=== PATIENT | male | born 1960 | race Caucasian/White ===

== ENCOUNTER 2024-08-19 17:47 | Emergency (ER) | payer SELFPAY ==
[2024-08-19 17:48] VITALS: BP 154/82; PULSE 90; RESP 15; TEMP 36.3; O2SAT 96; BMI 26.9
--- NOTE | 2024-08-19 18:30 | EDS_ITS ---
HPI History of Present Illness Chief Complaint: Eye Problem PFS PFS Medical History no medical history Allergy/AdvReac Type Severity Reaction Status Date / Time No Known Allergies Allergy Verified 08/19/24 17:50 Family History no significant family his Surgical History no surgical history Social History Smoking Status: Former smoker EXAM Physical Exam Const Vital Signs: 08/19/24 17:48 Temperature 97.3 F L Temperature Source Temporal Pulse Rate 90 Respiratory Rate 15 Blood Pressure 154/82 H Blood Pressure Mean 106 Pulse Ox 96 Oxygen Delivery Method Room Air [facility] [place] Narrative Medical decision making narrative: HISTORY OF PRESENT ILLNESS: 63-year-old male presents with left eye blurry vision. No redness or irritation was noted per the patient's history. Notes this began on Saturday. His states he has been started and would not come in. He notes blurry vision almost total vision loss in the left eye. He still make out light however is very blurry. Typically wears glasses. No contacts. No foreign bodies noted to left eye. No redness or itching. No history of strokes. No recent head trauma. No headache. No focal neurologic deficits otherwise. REVIEW OF SYSTEMS: Pertinent positives: Blurry vision, left eye irritation Pertinent negatives: Headache, palpitations PHYSICAL EXAM: Nursing triage notes reviewed, Vital signs reviewed Constitutional: [facility] see [facility] HENT: MMM Eyes: Visual acuity 20/25 OD, could not make out any Snellen eye chart letters OS, visual peña intact, funduscopic exam with dark appearing fundus, no sign of a sanabria macula or blood and thunder appearance fluorescein stain showed no evidence of corneal abrasion or globe rupture. Pupils equal round and reactive to light, Extraocular muscles intact Neck: No stridor, no JVD, full neck ROM Lungs: Clear to auscultation, No wheezing or rales. No increased work of breathing, no conversational dyspnea, no accessory muscle use, no nasal flaring. No respiratory distress noted Heart: Regular rate and rhythm, No murmurs, No rubs and No gallops, 2+ distal pulses (radial, femoral, posterior tibial) in all extremities Skin: No rash or lesions noted Neuro: Alert and oriented x3, neuro exam at baseline, cranial nerves II through XII are intact. No pain with extraocular muscle movement. There is negative test of skew. 5 of 5 strength in upper and lower extremities in flexion extension. Intact sensation to light touch in upper and lower extremity dermatomes. No truncal or extremity ataxia. No dysdiadochokinesia. Normal gait. 2+ reflexes in upper and lower extremities. No meningeal signs. Negative Babinski. NIH of 0. MEDICAL DECISION MAKING: Chief Complaint: Left eye irritation Consults: Ophthalmology -discussed the case with Dr. Antony local fish smoker who noted there is no indication for emergent ophthalmology evaluation or acute surgical intervention. Note he could see the patient tomorrow and 08/20/2024 [facility] Narrative: The patient was initially hemodynamically stable, afebrile and nontoxic- appearing. Exam with significant visual acuity difference in left eye. Patient's last known well was greater than 24 hours prior to arrival which means he is not a code stroke. Stroke team. He is not a candidate for TNK or thrombectomy. He is not a candidate for emergent transfer for ophthalmology evaluation. I considered the following differential diagnosis: Vitreous hemorrhage, vitreous detachment, retinal detachment, central retinal artery occlusion, retinal vein occlusion, CVA, ICH, large vessel occlusion I obtained a broad lab and imaging workup to further elucidate etiology of the patient's complaints. ALL IMAGES (IF OBTAINED) HAVE BEEN PERSONALLY REVIEWED AND INTERPRETED BY MYSELF. EKG with normal sinus rhythm rate of 65, left ax deviation, normal intervals, no STEMI CBC without leukocytosis, severe anemia, no thrombocytopenia. No coagulopathy BMP without evidence of significant electrolyte abnormalities, no anion gap, no acute kidney injury. High-sensitivity troponin is negative, no evidence of myocardial ischemia POCUS ultrasound showed showed a rectal detachment. CT scan of the brain, CTA of the head neck showed no evidence of ICH, mass or large vessel occlusion I have personally reviewed the patient's chest x-ray. Chest x-ray is unremarkable for pulmonary edema, pneumothorax, pneumonia or focal cardiopulmonary abnormality. The synthesis of the patient's history, physical exam, labs images suggest likely retinal detachment. Ophthalmology recommended close outpatient follow-up in next 24 hours. The patient and/or family, caregivers express understanding. The patient and/or family, caregivers agrees with the plan. Shared decision making: I will have a discussion with the patient and or visitors regarding risk/benefits of further testing or admission. They will be made aware of of the risk/benefits inherent in this decision they will be given the opportunity to voice understanding. Total critical care time today provided was at least 0 minutes. This excludes separately billable procedures. Critical care time (if documented) is secondary to the patient having high probability of clinically significant/life threatening deterioration in the patient's condition which required my urgent intervention. Impression: 1. Retinal detachment 2. Visual disturbance Dispo: Discharge home This note was generated with Chloe [employer] dictation software. It may contain incorrect words, spelling, and punctuation that were not noted in review of the chart prior to signing. Discharge Plan Triage Chief Complaint: Eye Problem ED Provider: Bobby Rivera Dx/Rx/DC Orders Instructions: ED Retinal Detachment Primary Care Provider: Care Physician,No Primary Referrals: Shon Antony MD [Med Staff - Active Staff] - Activity Restrictions/Additional Instructions: Thank you for trusting us with your care today! Your History and Physical exam were consistent with a retinal detachment. I spoke to the fish smoker Dr. Antony who noted there is no urgency to get this fixed given the duration of symptoms. Noted you can call his office tomorr ow morning we will fit you in. He plans to see you tomorrow on 08/20/2024. Your CT scan of your head and neck as well as additional labs images were unremarkable for signs of brain abnormality such as mass, bleed or stroke. Please take Tylenol (2 pills, 650 mg), ibuprofen (2 pills, 400 mg) every 6 hours as needed for pain and fever control. Please return to the emergency department if your symptoms change or worsen. Please follow with your primary care physician for further outpatient evaluation and management. Print Language: Croatian Disposition Disposition: Home, Self Care Discharge Date/Time: 08/19/24 21:45
[2024-08-19] MEDS: Fluorescein 1 MG STRIP 1 STRIP LEFT EYE (18:45)
[2024-08-19] MEDS: Tetracaine 0.5% Ophthalmic Bottle 1 DRP LEFT EYE (18:45)
[2024-08-19 19:16] VITALS: BMI 26.9
--- NOTE | 2024-08-19 19:16 | RAD_ITS ---
PROCEDURE: CHEST 1 VIEW 08/19/2024 REASON FOR EXAM: 63-year-old male, neuro deficit, acute stroke suspected. Denies chest/breathing problems. TECHNIQUE: Frontal view of the chest. COMPARISON: None. FINDINGS: Hardware: None. Heart: Mild cardiomegaly and bilateral pulmonary vascular congestion. Lungs: Low lung volumes bilaterally. Findings of mild emphysema. No focal consolidation, pleural effusion or pneumothorax. Bones: Degenerative changes are identified within the thoracic spine. RAD/Chest 1 View IMPRESSION: 1. Mild cardiomegaly. 2. Emphysema. Reading Location: [id number]
--- NOTE | 2024-08-19 19:16 | EKG12_ITS ---
Test Reason : DYSRHYTHMIA Blood Pressure : */* mmHG Vent. Rate : 65 BPM Atrial Rate : 65 BPM P-R Int : 182 ms QRS Dur : 92 ms QT Int : 420 ms P-R-T Axes : 16 -16 6 degrees QTcB Int : 436 ms Normal sinus rhythm Inferior infarct , age undetermined Abnormal ECG Confirmed by NOELLE العلي, SHELIA ([id number]), research editor FILIBERTO STONE ([id number]) on 08/20/2024 8:06:19 AM Referred By: Confirmed By: SHELIA DRAKE MD
--- NOTE | 2024-08-19 19:40 | CT_ITS ---
PROCEDURE: CT HEAD, CTA HEAD AND NECK W/ CONTRAST 08/19/2024 REASON FOR EXAM: 63-year-old male, left-sided visual loss, left eye irritation and redness. TECHNIQUE: CT imaging of the head was performed with coronal and sagittal reconstruction. CTA imaging of the head and neck from the aortic arch to the skull vertex with intravenous contrast. Coronal and Sagittal reconstruction series were provided. 3D, 3D post processing, 3D reconstructions, Maximum intensity projection (MIPs) Volume rendering and Shaded surface rendering was provided. CONTRAST: Isovue 300 VOLUME: 100ML One or more dose reduction techniques were used (e.g., Automated exposure control, adjustment of the mA and/or kV according to patient size, use of iterative reconstruction technique). RADIATION DOSE SUMMARY: CTDlvol: 100 mGy DLP: 1600 mGycm COMPARISON: None. FINDINGS: Noncontrast CT head: Mild scattered supratentorial white matter hypodensities. The flood-white matter interfaces are otherwise maintained. No acute intracranial hemorrhage or herniation. The basal cisterns are patent. No ventriculomegaly. The orbits are unremarkable. The visualized paranasal sinuses and mastoid air cells are well-aerated. No acute calvarial fracture. CTA head and neck: Standard branching pattern of the aortic arch vessels with moderate mixed calcific plaque. No focal stenosis or occlusion. Mild calcific plaque of the right vertebral artery at its origin. Patent bilateral vertebral arteries without narrowing. Calcific plaque of the bilateral common carotid, carotid bulb and internal carotid arteries resulting in approximately 70% stenosis of the left and 50% stenosis of the right internal carotid artery by NASCET criteria. Mild calcific plaque of the bilateral internal carotid siphons and left intracranial vertebral artery. The bilateral anterior, middle and posterior cerebral arteries are widely patent. No aneurysm or arteriovenous malformation. Major venous structures: Unremarkable. Other findings: Numerous carious teeth and periapical lucencies. Cervical spondylosis. Biapical atelectasis. CT/CTA Head AND Neck W/ Contrast IMPRESSION: 1. No acute intracranial finding on noncontrast CT. 2. No large vessel occlusion, AVM or arteriovenous malformation. 3. 70% stenosis of the left and 50% stenosis of the right internal carotid starr ry by NASCET criteria. Reading Location: [id number]
--- NOTE | 2024-08-19 19:42 | ED.RN ---
per dr covington, nih assessments are not needed at this time.
[2024-08-19 19:43] LABS: Absolute Lymphocyte Count 2.23 X10^3/uL (0.83-4.51); Absolute Neutrophil Count 5.6 X10^3/uL (2.0-7.7); Basophil# 0.07 X10^3/uL; Basophil% 0.8 % (0-1); Eosinophil# 0.17 X10^3/uL; Eosinophils% 1.9 % (0-5); Hematocrit 44.1 % (40-54); Hemoglobin 15.5 g/dL (13.0-16.5); Lymphocyte # 2.23 X10^3/ul (0.83-4.51); Lymphocyte % 25.2 % (19-41); Mean Corp Hgb Conc 35.1 g/dL (32-36); Mean Corpuscular Hgb 30.7 pg (27.0-32.0); Mean Corpuscular Volume 87.3 fL (80-94); Mean Platelet Vol. 9.8 fl (6.2-12.0); Monocyte# 0.77 X10^3/uL; Monocyte% 8.7 % (0-10); NRBC Flagged by Analyzer 0 % (0-5); Neutrophil # 5.56 X10^3/uL (2.7-7.7); Neutrophil % 62.9 % (47-70); Platelet Count 255 K/mm3 (150-450); RBC Distribution Width CV 12.2 % (11.6-14.6); RBC Distribution Width SD 38.7 fl (35.1-43.9); Red Blood Count 5.05 M/mm3 (4.6-6.2); White Blood Count 8.8 K/mm3 (4.4-11.0)
[2024-08-19 19:53] LABS: International Normalized Ratio 0.9; Prothrombin Time (Protime)PT. 12.2 SECONDS (11.7-14.9)
[2024-08-19 19:54] LABS: Partial Thromboplast Time 29.2 Seconds (24.1-36.2)
[2024-08-19 20:25] LABS: Anion Gap 12 (5-15); BUN 14 mg/dL (4-19); BUN/Creat Ratio 18.9 RATIO (10-20); Calcium,Total 9.1 mg/dL (7.6-11.0); Carbon Dioxide 24.6 mmol/L (21.0-32.0); Chloride 104 mmol/L (98-108); Creatinine, Serum 0.74 mg/dL (0.70-1.20); EST Glomerular Filtration Rate 103 (>60); Estimated Creatinine Clearance 101.42 ml/min (50-250); Glucose 103 mg/dL (70-99); Potassium 3.7 mmol/L (3.3-5.1); Sodium Level 140 mmol/L (133-145); Troponin T High Sensitivity 11 ng/L (<=22)
[2024-08-19 21:35] VITALS: BP 124/80; PULSE 78; RESP 16; TEMP 36.5; O2SAT 98
== END 2024-08-19 21:45 | disposition home or self-care (01) ==
PROVIDERS: Emergency Provider Emergency Medicine; Visit Provider Emergency Medicine
DX: H33.22 Serous retinal detachment, left eye (principal); Z87.891 Personal history of nicotine dependence
CPT/HCPCS: 70496; 70498; 71045; 80048; 84484; 85025; 85610; 85730; 93005; 99283; Q9967; A4216